=== PATIENT | female | born 1955 | race Caucasian/White ===

== ENCOUNTER 2020-09-19 14:17 | Outpatient (CLI) | payer MEDICARE, SELFPAY ==
--- NOTE | ~2020-09-19 | MM_ITS ---
EXAMINATION: MM screening gonsalo BI w toma HISTORY: Screening TECHNIQUE: Craniocaudal and mediolateral oblique 3-D tomosynthesis images were obtained and synthetic 2-D images were generated. CAD analysis was submitted and interpreted. COMPARISON: Comparison to multiple prior studies sequentially, with oldest reviewed study dated 06/11. BREAST PARENCHYMAL COMPOSITION: There are scattered areas of fibroglandular density. FINDINGS: There are developing bilateral breast asymmetries which are partially obscured by fibroglan dular tissue. There is no suspicious calcifications or architectural distortion. IMPRESSION: 1. Developing bilateral breast asymmetries. 2. Additional spot compression and mediolateral views with possible follow-up breast ultrasound recom mended. BI-RADS Category 0: Incomplete: Needs additional imaging evaluation. Reviewed, dictated and finalized at location A. IMPRESSION: 1. Developing bilateral breast asymmetries. 2. Additional spot compression and mediolateral views with possible follow-up b reast ultrasound recommended. BI-RADS Category 0: Incomplete: Needs additional imaging evaluation.
== END 2020-09-19 14:18 | disposition home or self-care (01) ==
LOC: ANHIMG 14:23
PROVIDERS: PCP Internal Medicine; Visit Provider Internal Medicine
DX: Z12.31 Encounter for screening mammogram for malignant neoplasm of breast (principal); R92.8 Other abnormal and inconclusive findings on diagnostic imaging of breast
CPT/HCPCS: 77063; 77067

== ENCOUNTER 2020-10-22 12:00 | Outpatient (CLI) | payer MEDICARE, SELFPAY ==
--- NOTE | ~2020-10-22 | MMUS_ITS ---
EXAMINATION: MM diagnostic mammo BI, US breast BI complete HISTORY: Developing bilateral mammographic asymmetries reported on 09/19/2020 screening mammogram TECHNIQUE: Additional 3-D tomosynthesis images of both breasts were performed and synthetic 2-D image s were generated. CAD analysis was submitted and interpreted. High resolution complete bilateral andrei st ultrasound was performed. COMPARISON: 09/19/2020, 08/11/2018, 11/20/2015 bilateral digital screening mammogram examinations FINDINGS: MAMMOGRAPHIC FINDINGS: Mildly nodular fibroglandular stroma is noted. No reproducible suspicious mass or architectural disto rtion, malignant calcification, skin thickening or retraction is evident. ULTRASOUND: Complete bilateral breast ultrasound examination was performed. Right breast: 1:00 4 cm from nipple: 4 x 4.6 x 4.5 mm cyst 1:00 near nipple: 1.7 x 2.3 mm cyst 10:00 1 cm from nipple: 2.1 x 1.6 x 2.0 mm cyst Benign subareolar calcification with posterior shadowing. Left breast: 9:00 3 cm from nipple: There is a hypoechoic 1.6 x 2.3 x 2.2 mm lesion without internal vascularity o r posterior shadowing. Posterior wall enhancement is suggested. 6 month ultrasound follow-up is recom mended. 10:00 1 cm from nipple: 2.7 x 2.7 mm sonolucency without internal vascularity, consistent with cyst 10:00 2 cm from nipple: 2.3 x 2.6 mm hypoechoic lesion without internal vascularity or posterior shad owing, with some posterior wall enhancement, likely a small cyst. 11:00 2 cm from nipple: 1.8 x 4.7 x 3.7 millimeter cyst IMPRESSION: 1. Probable benign left breast cysts 2. 6 month left breast ultrasound follow-up is recommended BI-RADS category 3, probably benign findings. Reviewed, dictated and finalized at location A. IMPRESSION: 1. Probable benign left breast cysts 2. 6 month left breast ultrasound follow-up is recommended BI-RADS category 3, probably benign findings.
== END 2020-10-22 12:01 | disposition home or self-care (01) ==
LOC: ANHIMG 12:03
PROVIDERS: PCP Internal Medicine; Visit Provider Internal Medicine
DX: N64.89 Other specified disorders of breast (principal); R92.8 Other abnormal and inconclusive findings on diagnostic imaging of breast
CPT/HCPCS: 76641; 77066